=== PATIENT | female | born 1995 | race Caucasian/White ===

== ENCOUNTER 2017-02-14 22:32 | Outpatient (CLI) | payer MEDICAID ==
[~2017-02-14] VITALS: Ht 153.7 cm; Wt 71.2 kg
[2017-02-14 23:15] VITALS: BP 103/64; PULSE 77; RESP 18
[2017-02-14] MEDS ORDERED: PRENAT PO (23:17)
[2017-02-14] MEDS ORDERED: FERR325C PO (23:17)
--- NOTE | 2017-02-15 00:23 | RADRPT ---
PROCEDURE: US OB biophysical profile. CLINICAL INDICATION: LEAKING TECHNIQUE: Multiple sonographic images of the pelvis were obtained. The images were reviewed on a PACS workstation. COMPARISON: None FINDINGS: There is a single live intrauterine gestation. There is a normal amount of amniotic fluid with an TRISATN = 14.5 cm cm. Cardiac activity is present with 161 beats per minute. There is a vertex presentation. The placenta is anterior grade I to II. Biophysical profile: movement 2/2 tone 2/2. breathing 2/2 TRISTAN 2/2 Total 06/24 IMPRESSION: Normal biophysical profile. RPTAT:AAJJ Physician Ynag Date Time Electronically viewed and signed by Physician Yang on 02/15/2017 00:23 ALLEN/
--- NOTE | 2017-02-15 01:59 | TRIAGE ---
OB Triage Datetime Report Generated by CPN: 02/15/2017 01:59 Datetime: 02/15/2017 01:06 Stage of : OB Triage Labor Evaluation Frequency: x2 Monitor Mode: External Duration (sec)2399: 40-50 Resting Tone [place]: Relaxed Heart Rate FHR Baseline Rate: 120 Monitor Mode: External US Variability: Moderate 6-25 bpm Accelerations: 15X15 Decelerations: None Category: Category I Pain Assessment Pain Presence: None/Denies Pain Type: N/A Datetime: 02/15/2017 00:09 Monitor Mode: External Monitor Mode: External US Datetime: 02/15/2017 00:05 Stage of : OB Triage Datetime: 02/15/2017 00:00 Stage of : OB Triage Labor Evaluation Frequency: 0 Monitor Mode: External Resting Tone [place]: Relaxed Heart Rate FHR Baseline Rate: 130 Monitor Mode: External US Variability: Moderate 6-25 bpm Accelerations: 15X15 Decelerations: None Category: Category I Datetime: 02/14/2017 23:45 Vaginal Exam Dilatation (cms): 0.0 Effacement (%): 50 Station: -3 Exam By: Janay LINDO Vaginal Bleeding: None Cervix, Consistency: Firm Cervix, Position: Posterior Presentation 'A': Cephalic Datetime: 02/14/2017 23:12 Assessment Type: Triage Maternal Assessment Level of Consciousness: Fully Conscious DTR's/Clonus: DTRs 2+; No Clonus Headache: Denies Blurred Vision: No Respiratory Effort: Unlabored Breath Sounds, Left: Clear and Equal Breath Sounds, Right: Clear and Equal Nausea/Vomiting: Denies RUQ Epigastric Pain: Denies Lower Extremities Edema: Bilateral Lower Extremities Degree: 1+ Upper Extremities Edema: None Degree: None Facial Edema: None Fall Risk Assessment History of Falling: (0) No Secondary Diagnosis: (0) No Ambulatory Aid: (0) Bedrest/Nurse Assist IV Therapy: (0) No Gait: (0) Normal/Bedrest/Immobile Mental Status: (0) Oriented to Own Ability Fall Score: 0 Fall Risk Score Definition: No Risk: No action required Datetime: 02/14/2017 23:05 Stage of : OB Triage Monitor Mode: External Monitor Mode: External US Datetime: 02/14/2017 22:45 Stage of : OB Triage Datetime: 02/14/2017 22:40 Time of Arrival: 02/14/2017 22:26 EGA: 35.2 Arrived By: Wheelchair Arrived From: Home Chief Complaint: LOW ABD PAIN, LEAKING Movement: Present Contractions: Occasional Time Contractions Began: 02/14/2017 19:00 Rupture of Membranes: Unsure Vaginal Bleeding: None Vaginal Discharge: Denies Recent Sexual Intercouse: Denies Abdominal Trauma: Not Applicable Patient Complaints: Cramping; Other Initial Plan: VS, EFM, ROM+, SVE, BPP
--- NOTE | 2017-04-25 20:19 | QN ---
Documentation Comment r/o pre-term labor and PPROM at 35 wks CAROL PENDLETON MD Apr 25, 2017 20:19
== END 2017-02-15 01:20 | disposition home or self-care (01) ==
LOC: L-D 22:32 → OBT 22:32
PROVIDERS: ATTEND Obstetrics & Gynecology
DX: O42.913 Preterm premature rupture of membranes, unspecified as to length of time between rupture and onset of labor, third trimester (principal); Z3A.35 35 weeks gestation of pregnancy
CPT/HCPCS: 76818; 84112; Z7500; G0463

== ENCOUNTER 2017-03-07 16:21 | Outpatient (CLI) | payer MEDICAID ==
[~2017-03-07] VITALS: Ht 152.4 cm; Wt 75.5 kg
[~2017-03-07 16:21] MED LIST: FERR325C PO; PRENAT PO
--- NOTE | 2017-03-07 18:14 | TRIAGE ---
OB Triage Datetime Report Generated by CPN: 03/07/2017 18:14 Datetime: 03/07/2017 17:45 Stage of : Antepartum Labor Evaluation Frequency: OCCASIONAL Monitor Mode: External Duration (sec)2399: 40-50 Quality: Mild Pattern: Normal: <= 5 Contractions in 10 Minutes Resting Tone [place]: Relaxed Heart Rate FHR Baseline Rate: 135 Monitor Mode: External US FHR Baseline Changes: No Baseline Change Variability: Moderate 6-25 bpm Accelerations: 15X15 Decelerations: None Datetime: 03/07/2017 17:29 Vaginal Exam Dilatation (cms): 0.5 Effacement (%): 0 Station: -3 Exam By: MJ Vaginal Bleeding: None Cervix, Consistency: Soft Cervix, Position: Posterior Presentation 'A': Cephalic Datetime: 03/07/2017 17:00 Labor Evaluation Frequency: OCCASIONAL Monitor Mode: External Duration (sec)2399: 40-50 Quality: Mild Pattern: Normal: <= 5 Contractions in 10 Minutes Resting Tone [place]: Relaxed Heart Rate FHR Baseline Rate: 135 Monitor Mode: External US FHR Baseline Changes: No Baseline Change Variability: Moderate 6-25 bpm Accelerations: 15X15 Decelerations: None Category: Category I Datetime: 03/07/2017 16:32 Maternal Assessment Level of Consciousness: Fully Conscious DTR's/Clonus: DTRs 2+; No Clonus Headache: Denies Blurred Vision: No Respiratory Effort: Unlabored; Regular Rhythm; Equal Expansion Breath Sounds, Left: Clear and Equal Breath Sounds, Right: Clear and Equal Nausea/Vomiting: Denies RUQ Epigastric Pain: Denies Lower Extremities Edema: None Degree: None Upper Extremities Edema: None Degree: None Facial Edema: None Fall Risk Assessment History of Falling: (0) No Secondary Diagnosis: (0) No Ambulatory Aid: (0) Bedrest/Nurse Assist IV Therapy: (0) No Gait: (0) Normal/Bedrest/Immobile Mental Status: (0) Oriented to Own Ability Fall Score: 0 Fall Risk Score Definition: No Risk: No action required Datetime: 03/07/2017 16:31 Time of Arrival: 03/07/2017 16:31 EGA: 38.2 Arrived By: Ambulatory Arrived From: Home Chief Complaint: lower abdominal pain while walking Movement: Present Rupture of Membranes: Denies Vaginal Bleeding: None Vaginal Discharge: Denies Recent Sexual Intercouse: Denies Abdominal Trauma: Not Applicable Patient Complaints: Other Time Provider Notified: 03/07/2017 17:54 Provider Notified: UAJE Datetime: 02/14/2017 23:12 Fall Score: 0 Fall Risk Score Definition: No Risk: No action required Datetime: 02/14/2017 22:40 EGA: 35.2
== END 2017-03-07 18:00 | disposition home or self-care (01) ==
LOC: OBT 16:21 → L-D 16:21 → OBT 18:00
PROVIDERS: ATTEND Obstetrics & Gynecology
DX: O26.893 Other specified pregnancy related conditions, third trimester (principal); Z3A.38 38 weeks gestation of pregnancy; R10.30 Lower abdominal pain, unspecified
CPT/HCPCS: G0463

== ENCOUNTER 2017-03-11 21:53 | Outpatient (CLI) | payer MEDICAID ==
--- NOTE | 2017-03-07 18:35 | CONS ---
Date/Time of Note Date/Time of Note DATE: 03/07/17 TIME: 18:33 Assessment/Plan Assessment/Plan Additional Assessment/Plan Not in active labor. Discharge home with labor precautions. F/u with OB. Consultation Date/Type/Reason Admit Date/Time Hx of Present Illness at 38.2 weeks with abdominopelvic pain. Pain occurs when walking. Denies LOF, VB, UCs, dysuria. +FM. Getting PNC, denies complications. Past Medical History Medical History: no pertinent history Past Surgical History Past Surgical Hx: no surgical history Social History Other Social History Denies habits. Exam/Review of Systems Exam Gen: NAD HEENT: NCAT CV: RRR Pulm: CTAB Abd: gravid, NT Back: no CVAT Ext: NT SVE: L/C FHT: reactive [place]: rare LIA Powers Mar 07, 2017 18:35
[~2017-03-11] VITALS: Ht 152.4 cm; Wt 74.8 kg
[2017-03-11 22:38] VITALS: Ht 152.4 cm; Wt 74.8 kg
[2017-03-11 22:40] VITALS: BP 111/66; PULSE 69; RESP 18
--- NOTE | 2017-03-11 23:14 | QN ---
Documentation Comment OB TRIAGE 21 y/o at 38+ weeks with c/o bloody show. Patient denies ROM. Patient reports good movement and rare contractions. Afebrile VSS Abdomen soft NT cervis 1 cm. Strip category I Stable D/C home. TAVO TONY MD Mar 11, 2017 23:14
--- NOTE | 2017-03-11 23:30 | TRIAGE ---
OB Triage Datetime Report Generated by CPN: 03/11/2017 23:30 Datetime: 03/11/2017 23:09 Labor Evaluation Frequency: x4 Monitor Mode: External Duration (sec)2399: 60-100 Pattern: Normal: <= 5 Contractions in 10 Minutes Resting Tone [place]: Relaxed Heart Rate FHR Baseline Rate: 140 Monitor Mode: External US Variability: Moderate 6-25 bpm Accelerations: 15X15 Decelerations: None Category: Category I Datetime: 03/11/2017 22:59 Vaginal Exam Dilatation (cms): 1.0 Effacement (%): 50 Station: -1 Exam By: Dr. Romano Membrane Status: Intact Datetime: 03/11/2017 22:17 Time of Arrival: 03/11/2017 21:52 EGA: 38.6 Arrived By: Wheelchair Arrived From: Home Chief Complaint: Bloody mucus discharge Movement: Present Contractions: Irregular Time Contractions Began: 03/11/2017 19:00 Contractions: one an hour Rupture of Membranes: Denies Vaginal Bleeding: Scant Vaginal Discharge: Denies Recent Sexual Intercouse: Denies Abdominal Trauma: Not Applicable Patient Complaints: Other Initial Plan: CEFM Datetime: 03/11/2017 22:16 Stage of : OB Triage Assessment Type: Triage Maternal Assessment Level of Consciousness: Fully Conscious DTR's/Clonus: DTRs 2+; No Clonus Headache: Denies Blurred Vision: No Respiratory Effort: Unlabored; Regular Rhythm; Equal Expansion Breath Sounds, Left: Clear and Equal Breath Sounds, Right: Clear and Equal Nausea/Vomiting: Denies RUQ Epigastric Pain: Denies Lower Extremities Edema: None Degree: None Upper Extremities Edema: None Degree: None Facial Edema: None Temperature Route: Oral Fall Risk Assessment History of Falling: (0) No Secondary Diagnosis: (0) No Ambulatory Aid: (0) Bedrest/Nurse Assist IV Therapy: (0) No Gait: (0) Normal/Bedrest/Immobile Mental Status: (0) Oriented to Own Ability Fall Score: 0 Fall Risk Score Definition: No Risk: No action required Pain Assessment Pain Scale: 2 Pain Presence: Intermittent Pain Type: Cramping Pain Location: Abdomen Pain Assessment Comments: Pt only feels one contraction an hour. Datetime: 03/11/2017 22:13 Monitor Mode: Palpation Resting Tone [place]: Relaxed Monitor Mode: External US (Annotations: Applied) Datetime: 03/07/2017 18:19 Stage of : OB Triage Datetime: 03/07/2017 16:32 Fall Score: 0 Fall Risk Score Definition: No Risk: No action required Datetime: 03/07/2017 16:31 EGA: 38.2 Initial Plan: EFM Datetime: 02/14/2017 23:12 Fall Score: 0 Fall Risk Score Definition: No Risk: No action required Datetime: 02/14/2017 22:40 EGA: 35.2
[2017-03-16] MEDS ORDERED: FENTAnyl 2MCG/ML-ROPIV 0.2% 100 ML ONE (10:25)
== END 2017-03-11 23:20 | disposition home or self-care (01) ==
LOC: OBT 21:53 → L-D 21:53 → OBT 23:20
PROVIDERS: ATTEND Obstetrics & Gynecology
DX: O26.893 Other specified pregnancy related conditions, third trimester (principal); R10.9 Unspecified abdominal pain; Z3A.38 38 weeks gestation of pregnancy
CPT/HCPCS: G0463

== ENCOUNTER 2017-03-16 08:34 | Inpatient (IN) | payer MEDICAID ==
[~2017-03-16] VITALS: Ht 152.4 cm; Wt 72.0 kg
[2017-03-16 08:41] VITALS: Ht 152.4 cm; Wt 72.0 kg
[2017-03-16 08:42] VITALS: BP 113/71; PULSE 71; RESP 20
[2017-03-16] MEDS ORDERED: LIDOCAINE 1% (MPF) 30 ML INJ INJ PRN (09:00)
[2017-03-16] MEDS ORDERED: OXYTOCIN 30 UNITS/LR 500 ML IV PRN ×3 (09:00→22:30)
[2017-03-16] MEDS ORDERED: IBUPROFEN 600 MG TAB PO PRN (09:00)
[2017-03-16] MEDS ORDERED: OXYTOCIN 30 UNITS/LR 500 ML IV SCH ×4 (09:00→17:23)
[2017-03-16] MEDS ORDERED: METHYLERGONOVINE 0.2 MG INJ IM PRN ×3 (09:00→22:30)
[2017-03-16] MEDS ORDERED: MISOPROSTOL 200 MCG TAB PR PRN ×3 (09:00→22:30)
[2017-03-16] MEDS ORDERED: CARBOPROST 250 MCG INJ IM PRN ×3 (09:00→22:30)
[2017-03-16] MEDS ORDERED: BUTORPHANOL 2 MG INJ IV PRN (09:00)
--- NOTE | 2017-03-16 09:04 | TRIAGE ---
OB Triage Datetime Report Generated by CPN: 03/16/2017 09:04 Datetime: 03/16/2017 08:37 Maternal Assessment Level of Consciousness: Fully Conscious Maternal Assessment Level of Consciousness: Fully Conscious DTR's/Clonus: DTRs 2+ DTR's/Clonus: DTRs 2+; No Clonus Headache: Denies Headache: Denies Blurred Vision: No Blurred Vision: No Respiratory Effort: Unlabored; Regular Rhythm; Equal Expansion Breath Sounds, Left: Clear and Equal Breath Sounds, Right: Clear and Equal Nausea/Vomiting: Denies Nausea/Vomiting: Denies RUQ Epigastric Pain: Denies RUQ Epigastric Pain: Denies Facial Edema: None Facial Edema: None Temperature Route: Axillary Fall Risk Assessment History of Falling: (0) No Secondary Diagnosis: (0) No Ambulatory Aid: (0) Bedrest/Nurse Assist IV Therapy: (0) No Gait: (0) Normal/Bedrest/Immobile Mental Status: (0) Oriented to Own Ability Fall Score: 0 Fall Risk Score Definition: No Risk: No action required Labor Evaluation Frequency: 3-5 Monitor Mode: External Quality: Moderate Pattern: Normal: <= 5 Contractions in 10 Minutes Resting Tone [place]: Relaxed Heart Rate FHR Baseline Rate: 140 Monitor Mode: External US FHR Baseline Changes: No Baseline Change Variability: Moderate 6-25 bpm Accelerations: 15X15 Decelerations: None Category: Category I Pain Assessment Pain Scale: 4 Pain Presence: Intermittent Pain Type: Contraction Pain Location: Abdomen Pain Goal: 2 Vaginal Exam Dilatation (cms): 2.0 Effacement (%): 80 Station: -1 Exam By: CHETNA RAMIREZ Membrane Status: Intact Vaginal Bleeding: None Cervix, Consistency: Moderate Cervix, Position: Midposition Presentation 'A': Cephalic Datetime: 03/11/2017 23:10 Time of Arrival: 03/16/2017 08:17 EGA: 39.4 Arrived By: Wheelchair Arrived From: Home Chief Complaint: UCS SINCE 0400 Movement: Present Contractions: Regular Time Contractions Began: 03/16/2017 04:00 Contractions: 3-5 Rupture of Membranes: Denies Vaginal Bleeding: None Vaginal Discharge: Denies Recent Sexual Intercouse: Denies Abdominal Trauma: Not Applicable Patient Complaints: Contractions Time Provider Notified: 03/16/2017 09:00 Provider Notified: DR RICK Initial Plan: EFM,CALL DR RICK Datetime: 03/11/2017 22:17 EGA: 38.6 Time Provider Notified: 03/11/2017 22:59 Provider Notified: Dr. Romano Datetime: 03/11/2017 22:16 Fall Score: 0 Fall Risk Score Definition: No Risk: No action required Datetime: 03/07/2017 16:32 Fall Score: 0 Fall Risk Score Definition: No Risk: No action required Datetime: 03/07/2017 16:31 EGA: 38.2 Datetime: 02/14/2017 23:12 Fall Score: 0 Fall Risk Score Definition: No Risk: No action required Datetime: 02/14/2017 22:40 EGA: 35.2
[2017-03-16] MEDS: LACTATED RINGER'S 1,000 ML IV SCH ×3 (09:29→16:46)
[2017-03-16] MEDS ORDERED: MINERAL OIL LIGHT 10 ML VIAL TOP PRN ×2 (09:30→15:30)
[2017-03-16 09:48] LABS: ADD SCAN DIFF NO
[2017-03-16 09:50] LABS: BASOPHILS % 0.2 % (0.0-2.0); EOSINOPHILS % 0.4 % (0.0-7.0); HEMATOCRIT 39.7 % (37.0-47.0); HEMOGLOBIN 13.6 g/dl (12.0-16.0); LYMPHOCYTES # 1.8 10^3/ul (0.8-2.9); LYMPHOCYTES % 19.9 % (15.0-51.0); MEAN CORPUSCULAR HEMOGLOBIN 30.2 pg (29.0-33.0); MEAN CORPUSCULAR HGB CONC 34.3 g/dl (32.0-37.0); MEAN PLATELET VOLUME 9.8 fl (7.4-10.4); MONOCYTE # 0.5 10^3/ul (0.3-0.9); MONOCYTES % 5.3 % (0.0-11.0); NEUTROPHIL # 6.4 10^3/ul (1.6-7.5); NEUTROPHILS % 72.1 % (39.0-77.0); PLATELET COUNT 254 10^3/UL (140-415); RED BLOOD COUNT 4.51 10^6/ul (4.20-5.40); RED CELL DISTRIBUTION WIDTH 13.4 % (11.5-14.5); WHITE BLOOD COUNT 8.9 10^3/ul (4.8-10.8)
[2017-03-16] MEDS ORDERED: LACTATED RINGER'S 1,000 ML IV PRN (10:00)
[2017-03-16 10:15] LABS: INR 0.79; PARTIAL THROMBOPLASTIN TIME 27.5 Sec (25.0-35.0); PT RATIO 0.9
[2017-03-16] MEDS ORDERED: NALOXONE (0.4 MG/ML) INJ IV PRN ×2 (13:00→18:30)
[2017-03-16] MEDS ORDERED: FENTAnyl 2MCG/ML-ROPIV 0.2% 100 ML BAG EPI SCH (13:00)
[2017-03-16] MEDS ORDERED: CEFAZOLIN 2 GM/50 ML (PMX) 50 ML IVPB ONE ×2 (17:15→17:30)
[2017-03-16] MEDS ORDERED: LIDOCAINE 2% (SDV) 5 ML INJ ONE (17:29)
[2017-03-16] MEDS ORDERED: CITRIC ACID/NA CITRATE 30 ML CUP PO ONE (17:30)
[2017-03-16] MEDS ORDERED: ACETAMINOPHEN/CODEINE #3 TAB PO PRN ×4 (17:30→22:30)
[2017-03-16] MEDS ORDERED: OXYTOCIN 10 UNIT INJ ONE (17:30)
[2017-03-16] MEDS ORDERED: METOCLOPRAMIDE 10 MG INJ ONE (17:30)
[2017-03-16] MEDS ORDERED: LANOLIN 7 GM TUBE TOP PRN ×2 (17:30→22:30)
[2017-03-16] MEDS ORDERED: OXYCODONE/ACETAMINOPHEN (5/325) TAB PO PRN ×4 (17:30→22:30)
[2017-03-16] MEDS ORDERED: ONDANSETRON 4 MG INJ IV ONE (17:30)
[2017-03-16] MEDS ORDERED: CEFAZOLIN 1 GM/50 ML (PMX) 50 ML IVPB SCH ×2 (17:30→22:30)
[2017-03-16] MEDS ORDERED: morphine SULFATE/PF (10 MG/10 ML) INJ ONE (17:30)
[2017-03-16] MEDS ORDERED: ONDANSETRON 4 MG INJ ONE (17:30)
[2017-03-16] MEDS ORDERED: DEXAMETHASONE 4 MG/ML 1 ML INJ ONE (17:31)
[2017-03-16] MEDS ORDERED: KETOROLAC 30 MG INJ ONE (17:31)
--- NOTE | 2017-03-16 17:49 | HP ---
Date/Time of Note Date/Time of Note DATE: 03/16/17 TIME: 17:27 OB - History Hx of Present Free Text/Dictation This is 21 years old female 1 para 0 with a EDC of March 19, 2017 admitted to [facility] in labor pelvic examination on admission cervical dilatation 4 cm 60-70% effacement vertex presentation at -2 station contractions 3-6 minutes post admission patient required labor augmentation with Pitocin drip infusion ,cervix dilated to 9-1/2 cm with 100% effacement at -2 station then noted variable deceleration with late component with every contraction (category 3 heart tracing) since not anticipating a quick and timely delivery and the frequency of late decelerations this was discussed with the patient and the plan for operative delivery by section decided, patient was counseled regarding the complications of the surgery including bowel bladder injury infection hemorrhage and wound hematoma and she is willing to go ahead with this operation Estimated Due Date: March 19, 2017 : 1 Para: 0 Spontaneous : 0 Therapeutic : 0 Care: Good Care Ultrasounds: Normal mid trimester US Obstetrical Complications: None Medical Complications: None Past Family/Social History * Past Medical, Surgical, Family and Obstetric Histories reviewed from chart. Rubella: immune RPR/VDRL: Negative GBS Status: Negative HBsAG: Negative OB Admission Exam Vital Signs Vital Signs Vital Signs Date Time Temp Pulse Resp B/P Pulse Ox O2 Delivery O2 Flow Rate FiO2 03/16/17 08:42 97.7 71 20 113/71 Room Air Physical Exam HEENT: WNL Heart: Rhythm Normal Lungs: Clear, Equal Abdomen: WNL Extremities: Normal Reflexes: Normal Cervical Dilatation: 9cm Effacement: 100% Station: -2 Membranes: Ruptured Amniotic Fluid: Clear Heart Rate: 150's Accelerations: Accelerations Present Decelerations: Late Decelarations Varibility: Moderate Intensity: Firm Last 72 hours Lab Results CBC & BMP 03/16/17 09:31 OB Assessment/Plan Reason for admission: other (Labor) Plan: Other (Primary section due to nonreassuring heart tracing category 3( late deceleration) ANISHA RICK MD Mar 16, 2017 17:43
[2017-03-16] MEDS: IBUPROFEN 600 MG TAB PO SCH (18:00)
[2017-03-16] MEDS ORDERED: MEPERIDINE 100 MG INJ ONE (18:09)
[2017-03-16] MEDS ORDERED: PHENYLephrine (100 MCG/ML) 5ML SYG ONE (18:10)
[2017-03-16] MEDS ORDERED: ONDANSETRON 4 MG INJ IV PRN (18:30)
[2017-03-16] MEDS ORDERED: HYDROmorphONE 1 MG/ML SYG IV PRN ×2 (18:30)
[2017-03-16] MEDS ORDERED: morphine 4 MG/ML VIAL IV PRN (18:30)
[2017-03-16] MEDS ORDERED: HYDROCODONE/APAP (5/325) TAB PO PRN (18:30)
[2017-03-16] MEDS ORDERED: NALBUPHINE HCL (10 MG/1 ML) INJ IV PRN (18:30)
[2017-03-16] MEDS ORDERED: DIPHENHYDRAMINE 50 MG INJ IV PRN (18:30)
[2017-03-16] MEDS ORDERED: morphine 2 MG INJ IV PRN (18:30)
--- NOTE | 2017-03-16 19:42 | OPR ---
DATE OF OPERATION: 03/16/2017 PREOPERATIVE DIAGNOSES: 1. Intrauterine at term, second stage of labor. 2. Nonreassuring heart tracing category 3, not anticipating a timely delivery. POSTOPERATIVE DIAGNOSES: 1. Intrauterine at term, second stage of labor. 2. Nonreassuring heart tracing category 3, not anticipating a timely delivery. OPERATION PERFORMED: Primary transverse low cervical section. SURGEON: Anisha Rick MD ONCOLOGY PHARMACIST: Wai James MD ANESTHESIA: Spinal. ANESTHESIOLOGIST: Dr. Jama FINDINGS: Live baby boy with the 8 and 9. DETAILS OF THE PROCEDURE: Under satisfactory spinal anesthesia, the patient was prepped and draped and placed in supine position, tilted to the left. Pfannenstiel incision was made, carried through the subcutaneous tissue. Bleeders brought under control with electrocautery. Fascia incised to the length of the incision. Rectus muscle divided in midline. Peritoneum exposed, entered through a t ransverse incision. Exploration of abdomen revealed gravid uterus, normal appearing tubes and ovari es, evidence of a long labor with ____ amount of peritoneal fluid. Bladder flap was developed. Tra nsverse incision was made in the lower segment of the uterus. Amniotic sac ruptured. Meconium stai terry amniotic fluid noted. Live baby boy was delivered from occiput posterior with a large caput. N aso-oropharyngeal suction was performed. Baby had a nuchal cord x1. Baby handed to the te am for immediate attention. The patient received 20 units of Pitocin. Placenta delivered manually intact. Uterine cavity cleaned with wet sponge and drainage established. Uterus closed in 2 layers using Monocryl #1 in continuous fashion. Peritoneal cavity irrigated with warm saline. Sponge, ne edle, and instruments reported to be correct. Abdominal peritoneum closed with 2-0 chromic catgut c ontinuously. Rectus muscle approximated with 2 interrupted 2-0 chromic catgut. Fascia closed with #1 PDS in a continuous fashion. Subcutaneous tissue approximated with 2-0 chromic catgut. Skin jillian sed with subcuticular 4-0 Monocryl. Estimated blood loss 600 mL. Urine bag contained 300 mL of luis ar urine. The patient tolerated procedure well, transferred to recovery room in a good condition. Dictated By: ANISHA RICK MD HF/NTS Conf#: [id number] [facility]#: [id number]
[2017-03-16] MEDS: KETOROLAC 30 MG INJ IV PRN (20:50)
[2017-03-16] MEDS ORDERED: SENNA/DOCUSATE NA (8.6MG/50MG) TAB PO SCH (21:00)
[2017-03-16 22:00] VITALS: BP 114/72; PULSE 69; RESP 18
[2017-03-16 22:15] VITALS: BP 118/72; PULSE 69; RESP 18
[2017-03-16 22:30] VITALS: BP 120/75; PULSE 80; RESP 18
[2017-03-16 23:00] VITALS: BP 120/73; PULSE 86; RESP 18
[2017-03-17] VITALS: BP 123/71; PULSE 73; RESP 18
[2017-03-17] MEDS: OXYTOCIN 30 UNITS/LR 500 ML IV SCH ×4 (01:48→09:57)
[2017-03-17] MEDS: IBUPROFEN 600 MG TAB PO SCH ×8 (06:00→18:28)
[2017-03-17 07:32] LABS: ADD SCAN DIFF NO
[2017-03-17 07:34] LABS: BASOPHILS % 0.2 % (0.0-2.0); HEMATOCRIT 32.5 % (37.0-47.0); HEMOGLOBIN 11.2 g/dl (12.0-16.0); LYMPHOCYTES % 13.9 % (15.0-51.0); MEAN CORPUSCULAR HEMOGLOBIN 30.4 pg (29.0-33.0); MEAN CORPUSCULAR HGB CONC 34.5 g/dl (32.0-37.0); MEAN CORPUSCULAR VOLUME 88.1 fl (82.0-101.0); MEAN PLATELET VOLUME 9.8 fl (7.4-10.4); MONOCYTE # 0.9 10^3/ul (0.3-0.9); MONOCYTES % 5.8 % (0.0-11.0); NEUTROPHIL # 11.7 10^3/ul (1.6-7.5); NEUTROPHILS % 79.1 % (39.0-77.0); PLATELET COUNT 207 10^3/UL (140-415); RED BLOOD COUNT 3.69 10^6/ul (4.20-5.40); RED CELL DISTRIBUTION WIDTH 13.2 % (11.5-14.5); WHITE BLOOD COUNT 14.7 10^3/ul (4.8-10.8)
[2017-03-17 08:00] VITALS: BP 98/58; PULSE 65; RESP 16
[2017-03-17] MEDS: KETOROLAC 30 MG INJ IV PRN (09:50)
--- NOTE | 2017-03-17 10:25 | PN ---
Date/Time of Note Date/Time of Note DATE: 03/17/17 TIME: 10:24 OB Subjective Subjective Subjective Post day 1 Afebrile vital signs stable abdomen soft uterus firm incision dry lochia moderate extremity normal bowel sounds present ambulation recommended ANISHA RICK MD March 17, 2017 10:25
[2017-03-17 12:10] VITALS: BP 106/56; PULSE 68; RESP 18
[2017-03-17 16:04] VITALS: BP 95/57; PULSE 69; RESP 17
[2017-03-17] MEDS ORDERED: IBUPROFEN 600 MG TAB PO SCH (18:00)
[2017-03-17 20:00] VITALS: BP 113/70; PULSE 64; RESP 20
[2017-03-17] MEDS: SENNA/DOCUSATE NA (8.6MG/50MG) TAB PO SCH (22:45)
[2017-03-18] MEDS: IBUPROFEN 600 MG TAB PO SCH ×7 (00:53→23:55)
[2017-03-18 04:00] VITALS: BP 106/63; PULSE 72; RESP 20
[2017-03-18 07:45] VITALS: BP 109/72; PULSE 76; RESP 19
[2017-03-18] MEDS: SENNA/DOCUSATE NA (8.6MG/50MG) TAB PO SCH ×2 (08:56→21:00)
--- NOTE | 2017-03-18 10:22 | PN ---
Date/Time of Note Date/Time of Note DATE: 03/18/17 TIME: 10:21 OB Subjective Subjective Subjective Post day 2 Afebrile vital signs stable abdomen soft incision bowel sounds. Lochia moderate no bowel movement enema recommended ambulation encouraged ANISHA RICK MD March 18, 2017 10:22
[2017-03-18] MEDS ORDERED: NA PHOSPHATE/BIPHOS 133 ML ENEMA PR ONE (10:30)
[2017-03-18 16:00] VITALS: BP 107/64; PULSE 80; RESP 19
[2017-03-18 19:30] VITALS: BP 102/70; PULSE 85; RESP 19
[2017-03-19 04:00] VITALS: BP 102/65; PULSE 75; RESP 75
[2017-03-19] MEDS: IBUPROFEN 600 MG TAB PO SCH ×2 (05:50→11:58)
[2017-03-19 08:00] VITALS: BP 101/62; PULSE 74; RESP 18
[2017-03-19] MEDS: SENNA/DOCUSATE NA (8.6MG/50MG) TAB PO SCH (08:25)
[2017-03-19] MEDS ORDERED: DIPHTH/TET/ACEL PERTUSS (ADULT) 0.5 ML VIAL IM* ONE ×2 (09:00)
--- NOTE | 2017-03-19 10:10 | DS ---
Date/Time of Note Date/Time of Note DATE: 03/19/17 TIME: 10:06 Discharge Summary Admission/Discharge Info Admit Date/Time Mar 16, 2017 at 08:50 Discharge Date/Time March 19, 2017 at 10 AM Final Diagnosis Term post day 3 Patient Condition: Good Procedures Primary for failure to progress second stage of labor nonreassuring heart tracing Hx of Present Illness Term Hospital Course Satisfactory uneventful Home Meds Reported Medications Ferrous Sulfate (Iron) 325 Mg Capsule.er, 325 MG PO DAILY, CAP 02/14/17 Multivit/Min/Fol Ac/Iron/Pren* ( S*) 1 Tab Tab, 1 TAB PO DAILY, TAB 02/14/17 Follow-up Plan Post follow-up recommendations, advised to make appointment with the clinic in 1 week for post follow-up ANISHA RICK MD March 19, 2017 10:09
== END 2017-03-19 13:43 | disposition home or self-care (01) | DRG 766 ==
LOC: OBT 08:34 → L-D 08:35 → OBT 08:50 → L-D 17:33 → PP1 21:39
PROVIDERS: ADMIT Obstetrics & Gynecology; ATTEND Obstetrics & Gynecology
PROC: 10D00Z1 Extraction of Products of Conception, Low, Open Approach (ICD-10-PCS; principal; 2017-03-16 18:00)
DX: O76 Abnormality in fetal heart rate and rhythm complicating labor and delivery (principal); O62.1 Secondary uterine inertia; Z3A.39 39 weeks gestation of pregnancy; Z37.0 Single live birth
CPT/HCPCS: 62319; 85025; 85610; 85730; 86592; 86900; 86901; 87340; 90715; 94760; 99464; G0463; J0690; J1100; J1885; J2175; J2274; J2370; J2405; J2590; J2765; J3010; J7120